=== PATIENT | male | born 2000 | race Caucasian/White ===

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

== ENCOUNTER 2022-01-14 14:35 | Emergency (ER) | payer OTHER, SELFPAY ==
--- NOTE | 2022-01-14 14:45 | ED.URI ---
HPI - URI/Sore Throat General Chief Complaint: Upper Respiratory Infection Stated Complaint: Nausea,Sore Throat, Headache Time Seen by Provider: 01/14/22 14:45 History of Present Illness HPI Narrative: Vinny Alberto is a 22 yo male with sore throat and fever of 101.3- has been sick a few days. He has not taken any tylenol since this morning because he does not like to take pills-he has not been eating since Thursday, he states his urine is bright yellow and foamy. His mother's friend brought him here for medication Recent ACL/meniscus repair to his right knee that he hurt during sports. He is a avid player and usually hydrates well Related Data Allergies Allergy/AdvReac Type Severity Reaction Status Date / Time Sulfa (Sulfonamide Allergy Unknown Rash Verified 01/14/22 14:44 Antibiotics) Review of Systems Review of Systems: CONSTITUTIONAL: Has fever, chills, sweats. EYES: Denies visual changes, redness, discharge. ENT: Denies rhinorrhea, congestion, has very sore throat, otalgia. Difficult to drink or so CARDIOVASCULAR: Denies chest pain, palpitations, edema. RESPIRATORY: Denies dyspnea, wheezing, cough GASTROINTESTINAL: Denies abdominal pain, nausea, vomiting, diarrhea. GENITOURINARY: Denies dysuria, hematuria, abnormal discharge SKIN: Denies rash or itching. NEUROLOGIC: Denies numbness, or focal weakness. PSYCHIATRIC: Denies anxiety or depression. [facility] Surgical History Surgical History History of placement of ear tubes Family History Family History Father Diabetes mellitus Mother Periodic paralysis Grandparent Colon polyp Grandparent Gallbladder disease Social History Social History Social History: The pt is a 19 y.o. 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 He denies tobacco or substance use. He reports that he does occasionally drink alcohol socially but reports that his last drink was 3 weeks ago. The pt reports that he is sexually active with 1 female partner. He has been with this partner for 2 years. Smoking status: Never smoker Alcohol intake: current Drinks per week: 2 Substance use: never Gender identity (if verbalized by the patient): Male Spiritual care concerns: No Agree to blood products: Yes Comments At time of signature, I agree with nursing past medical, surgical, social and family history. There is no relevant family history pertinent to the presenting complaint. Exam Narrative: GENERAL: This is a well-nourished, well-developed patient, in mild distress. HEAD: normocephalic, atraumatic. EYES: Sclera clear/white. Vision is grossly intact. EARS: External ears normal, auditory canals erythema and without drainage, TMs normal without perforation. Hearing grossly intact. NOSE: External nose normal without nasal discharge, nares without redness, no rhinorrhea. THROAT: Mucous membranes moist, posterior pharynx erythema with bilateral lymph enlargement NECK: Neck supple,tender CARDIOVASCULAR: Tachycardic rate and rhythm without murmurs, gallops, or rubs. RESPIRATORY: Clear to auscultation. Breath sounds equal bilaterally. No wheezes, rales, or rhonchi. GASTROINTESTINAL: Not done SKIN: warm, intact with no suspicious lesions or rash, good texture and turgor. NEURO: awake, alert, and oriented to person, place and time. There were no obvious focal neurologic abnormalities. Steady gait EXTREMITIES: Normal range of motion. BACK: Nontender without deformity Course Course Emergency Course: Patient has been sick for the last 2 days since running a temperature and has not been taking antipyretic, not drinking adequate fluids unable to eat because of sore throat We have no strep test here Given prednisone 60 mg here and then started on amoxicillin 875 1 twice daily. Take Tylenol or ibuprofen around-the-
[2022-01-14 14:46] VITALS: BP 126/87; PULSE 119; RESP 18; TEMP 38.5; O2SAT 100
[2022-01-14] MEDS: predniSONE 20 MG TABLET 60 MG PO (15:05)
== END 2022-01-14 15:07 | disposition home or self-care (01) ==
PROVIDERS: Emergency Provider Nurse Practitioner
DX: J02.0 Streptococcal pharyngitis (principal)
CPT/HCPCS: 99213; G0463; J7512